=== PATIENT | female | born 1935 | race Caucasian/White ===

== ENCOUNTER → 2016-06-18 | Outpatient (CLI) | payer MEDICARE ==
[~2016-06-18] MED LIST: ACET-1757 PO; ACET325T21 PO; APIX5TAB PO; ASPI-621 PO; ATOR20TA PO; ATOR40TA78 PO; BISA10SU2 PR; CEFD300C2 PO; CEPH-368 PO; DIGO125T PO; DIGO250T PO; DOCU100C8 PO; DOXY100T PO; FURO-93 PO; FURO20TA3 PO; GUAI5LIQ3 PO; HYDR-3138 PO; HYDR25TA6 PO; LEVO100T5 PO; LEVO112T25 PO; LEVO50TA PO; LOSA100T6 PO; LOSA50TA6 PO; MAGN400T26 PO; MAGN71.5 PO; METF100010 PO; METF500T4 PO; METO-93 PO; METO-99 PO; METO50TA82 PO; OMEP-110 PO; OMEP20TA62 PO; ONDA4TAB13 PO; OXYC5TAB3 PO; POLY17PO5 PO; POTA15TA2 PO; POTA20TA14 PO; POTASSIUM PO; SITA100T PO; TRAM50TA2 PO; VALS320T2 PO; WARF2.5T PO
== END | disposition home or self-care (01) ==
LOC: RAD 09:26
PROVIDERS: ATTEND Internal Medicine
DX: Z51.89 Encounter for other specified aftercare (principal); R13.10 Dysphagia, unspecified
CPT/HCPCS: 74230

== ENCOUNTER → 2016-06-19 | Outpatient (CLI) | payer MEDICARE | END | disposition home or self-care (01) | LOC: CVU 11:53 | PROVIDERS: ATTEND Podiatrist Foot & Ankle Surgery | DX: I63.443 Cerebral infarction due to embolism of bilateral cerebellar arteries (principal) | CPT/HCPCS: 93880 ==

== ENCOUNTER 2016-12-03 20:08 | Inpatient (IN) | payer MEDICARE, OTHER ==
[~2016-12-03] VITALS: Ht 157.5 cm; Wt 59.2 kg
[~2016-12-03 20:08] MED LIST changes: -CEFD300C2 PO; +CEFD300C37 PO; +DOCU100C33 PO; -DOCU100C8 PO; -HYDR-3138 PO; +HYDR-3237 PO; -LEVO112T25 PO; +LEVO112T41 PO
[2016-12-03] MEDS ORDERED: DIPH,PERTUSS(ACELL),TET VAC/PF 0.5 ML IM-VACC ONE ×2 (20:30→21:06)
[2016-12-03] MEDS ORDERED: LIDOCAINE 1%, 20ML INFIL ONE (20:30)
[2016-12-03] MEDS ORDERED: SODIUM CHLORIDE FLUSH 10ML SYR IVF ONE (20:30)
[2016-12-03] MEDS ORDERED: BIMA2.5D EACHEYE (20:48)
[2016-12-03] MEDS ORDERED: METO-99 PO (20:48)
[2016-12-03] MEDS ORDERED: FLUO5DRO3 PO (20:48)
[2016-12-03] MEDS ORDERED: GABA300C10 PO (20:48)
[2016-12-03 20:52] LABS: HEMATOCRIT 43.9 % (34.6-47.8); HEMOGLOBIN 14.9 g/dL (11.7-16.4); WHITE BLOOD COUNT 10.4 x10^3/uL (3.4-10)
[2016-12-03] MEDS ORDERED: LIDOCAINE 1%, 20ML ONE (21:05)
[2016-12-03 21:06] LABS: ASPARTATE AMINO TRANSFERASE 18 U/L (15-37); BLOOD UREA NITROGEN 18 mg/dL (7-18)
[2016-12-03 21:07] LABS: IS PT STATUS REG ER OR PRE ER? YES
[2016-12-03] MEDS ORDERED: ONDANSETRON 2MG/ML, 2ML ONE (23:24)
[2016-12-03] MEDS ORDERED: MORPHINE SULFATE 4 MG/ML, 1ML ONE (23:24)
[2016-12-03] MEDS ORDERED: ONDANSETRON 2MG/ML, 2ML IVPush ONE (23:30)
[2016-12-03] MEDS ORDERED: MORPHINE SULFATE 4 MG/ML, 1ML IVPush ONE (23:30)
[2016-12-04] MEDS ORDERED: ONDANSETRON 2MG/ML, 2ML IVPush PRN
[2016-12-04] MEDS ORDERED: ONDANSETRON ODT 4 MG PO PRN
[2016-12-04] MEDS ORDERED: POLYETHYLENE GLYCOL 17 GM PACKET PO PRN
[2016-12-04] MEDS ORDERED: hydrALAzine 20 MG/ML, 1ML IVPush PRN
[2016-12-04] MEDS ORDERED: BISACODYL 10 MG SUPP PR PRN
[2016-12-04 00:25] VITALS: BP_SYST 160; BP_SYST 161; BP_SYST 162; BP_DIAS 67; BP_DIAS 72; BP_DIAS 84
[2016-12-04] MEDS: FML MC SCH ×3 (01:00→17:00)
[2016-12-04] MEDS: LOSARTAN 50MG TABLET PO SCH ×2 (01:18→20:23)
[2016-12-04] MEDS: ATORVASTATIN 20 MG TABLET PO SCH ×2 (01:18→20:23)
[2016-12-04] MEDS: APIXABAN 5 MG TABLET PO SCH ×3 (01:19→20:22)
[2016-12-04] MEDS: MAGNESIUM OXIDE 400 MG TABLET PO SCH ×3 (01:20→20:23)
[2016-12-04] MEDS: GABAPENTIN 100 MG CAPSULE PO SCH ×4 (01:20→20:24)
[2016-12-04] MEDS: FLUOROMETHOLONE PO SCH ×3 (01:21→20:24)
[2016-12-04] MEDS: LATANOPROST OPHTH 0.005%, 2.5ML EACHEYE SCH ×2 (01:22→20:24)
[2016-12-04] MEDS: SODIUM CHLORIDE FLUSH 10ML SYR IVF SCH ×3 (01:22→20:24)
[2016-12-04] MEDS: ACETAMINOPHEN 325 MG TABLET PO PRN (01:39)
[2016-12-04 01:52] VITALS: BP_SYST 160; BP_SYST 161; BP_SYST 162; BP_DIAS 67; BP_DIAS 72; BP_DIAS 84
[2016-12-04 02:01] LABS: PATH.CAST-FLAG NOT PRESENT; SPERM-FLAG NOT PRESENT; SRC-FLAG NOT PRESENT; XTAL-FLAG NOT PRESENT; YLC-FLAG NOT PRESENT
[2016-12-04 03:48] LABS: HEMATOCRIT 39.5 % (34.6-47.8); HEMOGLOBIN 13.4 g/dL (11.7-16.4); WHITE BLOOD COUNT 9.7 x10^3/uL (3.4-10)
[2016-12-04 03:54] LABS: ASPARTATE AMINO TRANSFERASE 16 U/L (15-37); BLOOD UREA NITROGEN 15 mg/dL (7-18)
[2016-12-04 03:59] LABS: IS PT STATUS REG ER OR PRE ER? NO
[2016-12-04] MEDS: CEFTRIAXONE PMX 1GM/50ML 50 ML IV SCH (04:21)
[2016-12-04] MEDS: LEVOTHYROXINE 50 MCG TABLET PO SCH (06:28)
[2016-12-04 07:00] VITALS: BP 137/57
[2016-12-04] MEDS: SENNA/DOCUSATE TABLET PO SCH (09:29)
[2016-12-04] MEDS: POTASSIUM CHLORIDE 10 MEQ TABLET.ER PO SCH (09:29)
[2016-12-04] MEDS: FUROSEMIDE 20 MG TABLET PO SCH ×2 (09:29→17:00)
[2016-12-04 14:20] VITALS: BP 173/56
[2016-12-04 21:43] VITALS: BP 145/63
[2016-12-05] MEDS: FML MC SCH ×3 (01:00→16:13)
[2016-12-05 01:59] VITALS: BP 152/64
[2016-12-05] MEDS: CEFTRIAXONE PMX 1GM/50ML 50 ML IV SCH (05:01)
[2016-12-05] MEDS: LEVOTHYROXINE 50 MCG TABLET PO SCH (05:06)
[2016-12-05] MEDS: POTASSIUM CHLORIDE 10 MEQ TABLET.ER PO SCH (07:59)
[2016-12-05] MEDS: SODIUM CHLORIDE FLUSH 10ML SYR IVF SCH ×2 (07:59→20:23)
[2016-12-05] MEDS: SENNA/DOCUSATE TABLET PO SCH (07:59)
[2016-12-05] MEDS: GABAPENTIN 100 MG CAPSULE PO SCH ×3 (07:59→21:05)
[2016-12-05] MEDS: MAGNESIUM OXIDE 400 MG TABLET PO SCH ×2 (07:59→20:21)
[2016-12-05] MEDS: FUROSEMIDE 20 MG TABLET PO SCH ×2 (07:59→16:13)
[2016-12-05] MEDS: APIXABAN 5 MG TABLET PO SCH ×2 (07:59→20:21)
[2016-12-05] MEDS: FLUOROMETHOLONE PO SCH ×2 (08:00→20:23)
[2016-12-05 08:12] VITALS: BP 172/72
[2016-12-05] MEDS: VALSARTAN 160 MG TABLET PO SCH ×2 (11:53→20:21)
[2016-12-05 13:32] VITALS: BP 162/68
[2016-12-05] MEDS: ACETAMINOPHEN 325 MG TABLET PO PRN ×2 (16:16→20:30)
[2016-12-05 20:11] VITALS: BP 124/77
[2016-12-05] MEDS: ATORVASTATIN 20 MG TABLET PO SCH (20:21)
[2016-12-05] MEDS: LATANOPROST OPHTH 0.005%, 2.5ML EACHEYE SCH (20:23)
[2016-12-06] MEDS: FML MC SCH ×4 (01:13→23:59)
[2016-12-06 02:19] VITALS: BP 132/85
[2016-12-06] MEDS: ACETAMINOPHEN 325 MG TABLET PO PRN ×4 (05:21→21:12)
[2016-12-06] MEDS: LEVOTHYROXINE 50 MCG TABLET PO SCH (05:21)
[2016-12-06] MEDS: CEFTRIAXONE PMX 1GM/50ML 50 ML IV SCH (05:21)
[2016-12-06 06:09] LABS: HEMATOCRIT 41.1 % (34.6-47.8); HEMOGLOBIN 14.1 g/dL (11.7-16.4); WHITE BLOOD COUNT 6.3 x10^3/uL (3.4-10)
[2016-12-06 06:12] LABS: BLOOD UREA NITROGEN 16 mg/dL (7-18)
[2016-12-06 08:16] VITALS: BP 135/65
[2016-12-06] MEDS: SENNA/DOCUSATE TABLET PO SCH (08:50)
[2016-12-06] MEDS: GABAPENTIN 100 MG CAPSULE PO SCH ×3 (09:00→21:15)
[2016-12-06] MEDS: SODIUM CHLORIDE FLUSH 10ML SYR IVF SCH ×2 (09:00→21:15)
[2016-12-06] MEDS: FLUOROMETHOLONE PO SCH ×2 (09:00→21:14)
[2016-12-06] MEDS: VALSARTAN 160 MG TABLET PO SCH ×2 (09:47→21:15)
[2016-12-06] MEDS: FUROSEMIDE 20 MG TABLET PO SCH ×2 (09:47→17:55)
[2016-12-06] MEDS: MAGNESIUM OXIDE 400 MG TABLET PO SCH ×2 (09:48→21:15)
[2016-12-06] MEDS: POTASSIUM CHLORIDE 10 MEQ TABLET.ER PO SCH (09:48)
[2016-12-06] MEDS: APIXABAN 5 MG TABLET PO SCH ×2 (09:48→21:15)
[2016-12-06] MEDS: MEROPENEM 500 MG in SODIUM CHLORIDE 0.9% 100 ML IV SCH ×2 (13:17→17:55)
[2016-12-06 14:45] VITALS: BP 127/64
[2016-12-06 19:45] VITALS: BP 140/61
[2016-12-06] MEDS: LATANOPROST OPHTH 0.005%, 2.5ML EACHEYE SCH (21:14)
[2016-12-06] MEDS: ATORVASTATIN 20 MG TABLET PO SCH (21:15)
[2016-12-07] MEDS: MEROPENEM 500 MG in SODIUM CHLORIDE 0.9% 100 ML IV SCH ×4 (00:11→18:35)
[2016-12-07 01:23] VITALS: BP 151/76
[2016-12-07] MEDS: LEVOTHYROXINE 50 MCG TABLET PO SCH (05:37)
[2016-12-07] MEDS: ACETAMINOPHEN 325 MG TABLET PO PRN ×4 (05:37→21:11)
[2016-12-07 06:07] LABS: HEMATOCRIT 40.5 % (34.6-47.8); HEMOGLOBIN 13.7 g/dL (11.7-16.4)
[2016-12-07 06:18] LABS: BLOOD UREA NITROGEN 15 mg/dL (7-18)
[2016-12-07 08:12] VITALS: BP 154/64
[2016-12-07] MEDS: GABAPENTIN 100 MG CAPSULE PO SCH ×2 (08:55→21:08)
[2016-12-07] MEDS: FML MC SCH ×2 (08:56→17:00)
[2016-12-07] MEDS: SODIUM CHLORIDE FLUSH 10ML SYR IVF SCH ×2 (08:57→21:08)
[2016-12-07] MEDS: SENNA/DOCUSATE TABLET PO SCH (08:57)
[2016-12-07] MEDS: FLUOROMETHOLONE PO SCH ×2 (09:00→21:09)
[2016-12-07] MEDS: VALSARTAN 160 MG TABLET PO SCH ×2 (09:13→21:08)
[2016-12-07] MEDS: POTASSIUM CHLORIDE 10 MEQ TABLET.ER PO SCH (09:13)
[2016-12-07] MEDS: FUROSEMIDE 20 MG TABLET PO SCH ×2 (09:13→17:25)
[2016-12-07] MEDS: APIXABAN 5 MG TABLET PO SCH ×2 (09:13→21:08)
[2016-12-07] MEDS: MAGNESIUM OXIDE 400 MG TABLET PO SCH ×2 (09:13→21:08)
[2016-12-07 13:41] VITALS: BP 136/51
[2016-12-07 18:24] VITALS: BP 180/75
[2016-12-07 21:07] VITALS: BP 166/71
[2016-12-07] MEDS: ATORVASTATIN 20 MG TABLET PO SCH (21:08)
[2016-12-07] MEDS: LATANOPROST OPHTH 0.005%, 2.5ML EACHEYE SCH (21:09)
[2016-12-08] MEDS: MEROPENEM 500 MG in SODIUM CHLORIDE 0.9% 100 ML IV SCH ×4 (01:25→18:19)
[2016-12-08] MEDS: FML MC SCH (01:26)
[2016-12-08 02:52] VITALS: BP 146/61
[2016-12-08] MEDS: ACETAMINOPHEN 325 MG TABLET PO PRN ×2 (06:23→10:14)
[2016-12-08] MEDS: LEVOTHYROXINE 50 MCG TABLET PO SCH (06:23)
[2016-12-08 08:33] VITALS: BP 160/73
[2016-12-08] MEDS: SENNA/DOCUSATE TABLET PO SCH (09:00)
[2016-12-08] MEDS: FLUOROMETHOLONE PO SCH ×2 (09:00→20:53)
[2016-12-08] MEDS: GABAPENTIN 100 MG CAPSULE PO SCH ×3 (09:00→20:52)
[2016-12-08] MEDS: SODIUM CHLORIDE FLUSH 10ML SYR IVF SCH ×2 (09:00→20:52)
[2016-12-08] MEDS: FUROSEMIDE 20 MG TABLET PO SCH ×2 (09:20→18:19)
[2016-12-08] MEDS: MAGNESIUM OXIDE 400 MG TABLET PO SCH ×2 (09:21→20:52)
[2016-12-08] MEDS: APIXABAN 5 MG TABLET PO SCH ×2 (09:21→20:52)
[2016-12-08] MEDS: POTASSIUM CHLORIDE 10 MEQ TABLET.ER PO SCH (09:21)
[2016-12-08] MEDS: VALSARTAN 160 MG TABLET PO SCH ×2 (09:21→20:52)
[2016-12-08 13:55] VITALS: BP 151/76
[2016-12-08] MEDS ORDERED: HYDROcodone/APAP 5/325 TABLET PO PRN (14:30)
[2016-12-08] MEDS ORDERED: IBUPROFEN 200 MG TABLET PO PRN ×2 (15:00→19:30)
[2016-12-08] MEDS: OXYcodone/APAP 5/325MG TABLET PO PRN (17:17)
[2016-12-08] MEDS ORDERED: ACETAMINOPHEN 325 MG TABLET PO PRN (19:30)
[2016-12-08] MEDS ORDERED: ONDANSETRON ODT 4 MG PO PRN (19:30)
[2016-12-08] MEDS ORDERED: hydrALAzine 20 MG/ML, 1ML IVPush PRN (19:30)
[2016-12-08] MEDS ORDERED: BISACODYL 10 MG SUPP PR PRN (19:30)
[2016-12-08] MEDS ORDERED: ONDANSETRON 2MG/ML, 2ML IVPush PRN (19:30)
[2016-12-08 20:50] VITALS: BP 174/79
[2016-12-08] MEDS: ATORVASTATIN 20 MG TABLET PO SCH (20:52)
[2016-12-08] MEDS: LATANOPROST OPHTH 0.005%, 2.5ML EACHEYE SCH (20:53)
[2016-12-09 00:57] VITALS: BP 147/79
[2016-12-09] MEDS: MEROPENEM 500 MG in SODIUM CHLORIDE 0.9% 100 ML IV SCH ×4 (01:01→23:20)
[2016-12-09 05:28] LABS: HEMATOCRIT 39.2 % (34.6-47.8); HEMOGLOBIN 13.5 g/dL (11.7-16.4); WHITE BLOOD COUNT 6.6 x10^3/uL (3.4-10)
[2016-12-09 05:38] LABS: BLOOD UREA NITROGEN 13 mg/dL (7-18)
[2016-12-09] MEDS: LEVOTHYROXINE 50 MCG TABLET PO SCH (06:28)
[2016-12-09] MEDS: OXYcodone/APAP 5/325MG TABLET PO PRN ×4 (06:34→23:21)
[2016-12-09 07:45] VITALS: BP 139/67
[2016-12-09] MEDS: FUROSEMIDE 20 MG TABLET PO SCH ×2 (08:20→16:19)
[2016-12-09] MEDS: MAGNESIUM OXIDE 400 MG TABLET PO SCH ×2 (08:21→21:17)
[2016-12-09] MEDS: POTASSIUM CHLORIDE 10 MEQ TABLET.ER PO SCH (08:21)
[2016-12-09] MEDS: VALSARTAN 160 MG TABLET PO SCH ×2 (08:21→21:17)
[2016-12-09] MEDS: GABAPENTIN 100 MG CAPSULE PO SCH ×3 (08:22→21:17)
[2016-12-09] MEDS: SENNA/DOCUSATE TABLET PO SCH (08:25)
[2016-12-09] MEDS: SODIUM CHLORIDE FLUSH 10ML SYR IVF SCH ×2 (08:30→21:00)
[2016-12-09 08:58] VITALS: BP 164/72
[2016-12-09] MEDS: FLUOROMETHOLONE PO SCH ×2 (09:00→21:00)
[2016-12-09 15:50] VITALS: BP 146/74
[2016-12-09] MEDS: SODIUM CHLORIDE 0.9% 1,000 ML IV SCH ×2 (19:31→20:04)
[2016-12-09 20:30] VITALS: BP 149/72
[2016-12-09] MEDS: LATANOPROST OPHTH 0.005%, 2.5ML EACHEYE SCH (21:00)
[2016-12-09] MEDS: ATORVASTATIN 20 MG TABLET PO SCH (21:17)
[2016-12-10 03:00] VITALS: BP 137/76
[2016-12-10] MEDS: SODIUM CHLORIDE 0.9% 1,000 ML IV SCH ×3 (03:00→20:04)
[2016-12-10] MEDS: LEVOTHYROXINE 50 MCG TABLET PO SCH (05:32)
[2016-12-10] MEDS: MEROPENEM 500 MG in SODIUM CHLORIDE 0.9% 100 ML IV SCH ×3 (05:32→20:10)
[2016-12-10 05:35] LABS: HEMATOCRIT 39.1 % (34.6-47.8); HEMOGLOBIN 13.3 g/dL (11.7-16.4)
[2016-12-10 05:40] LABS: BLOOD UREA NITROGEN 14 mg/dL (7-18)
[2016-12-10] MEDS ORDERED: CEFAZOLIN PMX 1GM/50ML 50 ML IVPB ONE (07:00)
[2016-12-10] MEDS: FUROSEMIDE 20 MG TABLET PO SCH ×2 (08:00→16:38)
[2016-12-10] MEDS: POTASSIUM CHLORIDE 10 MEQ TABLET.ER PO SCH (09:00)
[2016-12-10] MEDS: SENNA/DOCUSATE TABLET PO SCH (09:00)
[2016-12-10] MEDS: VALSARTAN 160 MG TABLET PO SCH ×2 (09:00→20:10)
[2016-12-10] MEDS: FLUOROMETHOLONE PO SCH ×2 (09:00→20:11)
[2016-12-10] MEDS: MAGNESIUM OXIDE 400 MG TABLET PO SCH ×2 (09:00→20:10)
[2016-12-10] MEDS: GABAPENTIN 100 MG CAPSULE PO SCH ×3 (09:00→20:10)
[2016-12-10] MEDS: SODIUM CHLORIDE FLUSH 10ML SYR IVF SCH ×3 (09:00→20:11)
[2016-12-10 09:41] VITALS: BP 174/78
[2016-12-10] MEDS ORDERED: FENTANYL PF 100 MCG/2ML ONE (11:04)
[2016-12-10] MEDS ORDERED: CEFAZOLIN PMX 1GM/50ML 50 ML ONE (11:04)
[2016-12-10] MEDS ORDERED: MIDAZOLAM 1 MG/ML, 5ML ONE (11:04)
[2016-12-10] MEDS ORDERED: CEFAZOLIN 1,000 MG ONE (11:05)
[2016-12-10] MEDS ORDERED: LIDOCAINE 2%, 20ML ONE (11:05)
[2016-12-10] MEDS ORDERED: ACETAMINOPHEN 325 MG TABLET PO PRN (13:00)
[2016-12-10] MEDS ORDERED: ZOLPIDEM 5MG TABLET PO PRN (13:00)
[2016-12-10] MEDS: OXYcodone/APAP 5/325MG TABLET PO PRN ×2 (13:55→20:10)
[2016-12-10 13:56] VITALS: BP 152/77
[2016-12-10] MEDS: CEFAZOLIN PMX 1GM/50ML 50 ML IVPB SCH ×2 (16:36→23:44)
[2016-12-10] MEDS: LATANOPROST OPHTH 0.005%, 2.5ML EACHEYE SCH (20:10)
[2016-12-10] MEDS: ATORVASTATIN 20 MG TABLET PO SCH (20:10)
[2016-12-10 20:34] VITALS: BP 150/70
[2016-12-11 02:20] VITALS: BP 121/75
[2016-12-11] MEDS: MEROPENEM 500 MG in SODIUM CHLORIDE 0.9% 100 ML IV SCH (02:20)
[2016-12-11] MEDS: SODIUM CHLORIDE 0.9% 1,000 ML IV SCH (03:47)
[2016-12-11] MEDS: LEVOTHYROXINE 50 MCG TABLET PO SCH (05:52)
[2016-12-11] MEDS: OXYcodone/APAP 5/325MG TABLET PO PRN ×2 (05:55→15:44)
[2016-12-11 06:02] LABS: HEMOGLOBIN 12.9 g/dL (11.7-16.4); WHITE BLOOD COUNT 7.1 x10^3/uL (3.4-10)
[2016-12-11 06:23] LABS: BLOOD UREA NITROGEN 11 mg/dL (7-18)
[2016-12-11] MEDS: SENNA/DOCUSATE TABLET PO SCH (08:07)
[2016-12-11] MEDS: VALSARTAN 160 MG TABLET PO SCH ×2 (08:07→20:44)
[2016-12-11] MEDS: GABAPENTIN 100 MG CAPSULE PO SCH ×3 (08:08→20:44)
[2016-12-11] MEDS: FUROSEMIDE 20 MG TABLET PO SCH ×2 (08:08→17:13)
[2016-12-11] MEDS: SODIUM CHLORIDE FLUSH 10ML SYR IVF SCH ×4 (08:08→20:42)
[2016-12-11] MEDS: MAGNESIUM OXIDE 400 MG TABLET PO SCH ×2 (08:08→20:44)
[2016-12-11] MEDS: POTASSIUM CHLORIDE 10 MEQ TABLET.ER PO SCH (08:08)
[2016-12-11] MEDS: FLUOROMETHOLONE PO SCH ×2 (08:11→20:43)
[2016-12-11] MEDS ORDERED: DIGOXIN 0.25 MG/ML, 2ML IVPush ONE (09:00)
[2016-12-11] MEDS ORDERED: METOPROLOL TARTRATE 100 MG TABLET PO SCH (09:00)
[2016-12-11] MEDS: DIGOXIN 0.125 MG TABLET PO SCH (09:28)
[2016-12-11] MEDS: METOPROLOL TARTRATE 25 MG TABLET PO SCH ×2 (09:28→20:44)
[2016-12-11 09:36] VITALS: BP 133/65
[2016-12-11 15:00] VITALS: BP 150/74
[2016-12-11] MEDS: APIXABAN 5 MG TABLET PO SCH (17:13)
[2016-12-11 20:41] VITALS: BP 144/65
[2016-12-11] MEDS: LATANOPROST OPHTH 0.005%, 2.5ML EACHEYE SCH (20:43)
[2016-12-11] MEDS: ATORVASTATIN 20 MG TABLET PO SCH (20:44)
[2016-12-12 01:03] VITALS: BP 153/80
[2016-12-12] MEDS: OXYcodone/APAP 5/325MG TABLET PO PRN (01:45)
[2016-12-12] MEDS: LEVOTHYROXINE 50 MCG TABLET PO SCH (05:27)
[2016-12-12] MEDS: APIXABAN 5 MG TABLET PO SCH (05:27)
[2016-12-12 06:03] LABS: HEMATOCRIT 40.2 % (34.6-47.8); HEMOGLOBIN 13.8 g/dL (11.7-16.4); WHITE BLOOD COUNT 6.6 x10^3/uL (3.4-10)
[2016-12-12 06:15] LABS: BLOOD UREA NITROGEN 16 mg/dL (7-18)
[2016-12-12] MEDS ORDERED: METO25TA35 PO (08:52)
[2016-12-12] MEDS ORDERED: VALS160T3 PO (08:52)
[2016-12-12 08:56] VITALS: BP 164/77
[2016-12-12] MEDS: SENNA/DOCUSATE TABLET PO SCH (09:00)
[2016-12-12] MEDS: FLUOROMETHOLONE PO SCH (09:00)
[2016-12-12] MEDS: SODIUM CHLORIDE FLUSH 10ML SYR IVF SCH ×2 (09:00→09:56)
[2016-12-12] MEDS: METOPROLOL TARTRATE 25 MG TABLET PO SCH (09:55)
[2016-12-12] MEDS: FUROSEMIDE 20 MG TABLET PO SCH (09:55)
[2016-12-12] MEDS: GABAPENTIN 100 MG CAPSULE PO SCH (09:55)
[2016-12-12] MEDS: DIGOXIN 0.125 MG TABLET PO SCH (09:55)
[2016-12-12] MEDS: MAGNESIUM OXIDE 400 MG TABLET PO SCH (09:55)
[2016-12-12] MEDS: VALSARTAN 160 MG TABLET PO SCH (09:56)
[2016-12-12] MEDS ORDERED: FURO20TA3 PO (11:31)
== END 2016-12-12 14:00 | disposition home or self-care (01) | DRG 308 ==
LOC: ED 21:30 → EDIP 21:52 → 5SO 12-04 00:17
PROVIDERS: ADMIT Internal Medicine; ATTEND Internal Medicine
PROC: 0HQ1XZZ Repair Face Skin, External Approach (ICD-10-PCS; principal; 2016-12-03)
PROC: 4B02XSZ Measurement of Cardiac Pacemaker, External Approach (ICD-10-PCS; 2016-12-11)
DX: I49.5 Sick sinus syndrome (principal); E43 Unspecified severe protein-calorie malnutrition; D68.69 Other thrombophilia; I42.9 Cardiomyopathy, unspecified; I27.2 Other secondary pulmonary hypertension; I50.22 Chronic systolic (congestive) heart failure; I11.0 Hypertensive heart disease with heart failure; N39.0 Urinary tract infection, site not specified; I48.92 Unspecified atrial flutter; W19.XXXA Unspecified fall, initial encounter; E11.9 Type 2 diabetes mellitus without complications; E03.9 Hypothyroidism, unspecified; B96.1 Klebsiella pneumoniae [K. pneumoniae] as the cause of diseases classified elsewhere; B96.89 Other specified bacterial agents as the cause of diseases classified elsewhere; Z96.652 Presence of left artificial knee joint; E78.5 Hyperlipidemia, unspecified; E83.119 Hemochromatosis, unspecified; Z66 Do not resuscitate; G47.33 Obstructive sleep apnea (adult) (pediatric); I08.1 Rheumatic disorders of both mitral and tricuspid valves; I48.2 Chronic atrial fibrillation; S01.81XA Laceration without foreign body of other part of head, initial encounter; Y92.002 Bathroom of unspecified non-institutional (private) residence as the place of occurrence of the external cause; Z79.01 Long term (current) use of anticoagulants; Z79.84 Long term (current) use of oral hypoglycemic drugs; Z79.899 Other long term (current) drug therapy; Z83.3 Family history of diabetes mellitus; Z86.73 Personal history of transient ischemic attack (TIA), and cerebral infarction without residual deficits; Z87.891 Personal history of nicotine dependence; Z95.0 Presence of cardiac pacemaker; Z90.49 Acquired absence of other specified parts of digestive tract; Z98.49 Cataract extraction status, unspecified eye; Z87.01 Personal history of pneumonia (recurrent); Z68.23 Body mass index [BMI] 23.0-23.9, adult; Z90.710 Acquired absence of both cervix and uterus
CPT/HCPCS: 12051; 33208; 36415; 70450; 71010; 72125; 80048; 80053; 80162; 81001; 82040; 83735; 84484; 85025; 85610; 87077; 87086; 87186; 90471; 90715; 93005; 93306; 93880; 93930; 96374; 96375; 99156; 99157; C1779; C1785; C1892; J0690; J0696; J2185; J2250; J2405; J3010; J3490; J0360; J1160; J7030

== ENCOUNTER 2017-03-20 15:55 | Inpatient (IN) | payer MEDICARE, OTHER ==
[~2017-03-20] VITALS: Ht 157.5 cm; Wt 46.7 kg
[~2017-03-20 15:55] MED LIST changes: +BIMA2.5D EACHEYE; +FLUO5DRO3 PO; +GABA300C10 PO; +METO25TA35 PO; +VALS160T3 PO
[2017-03-20] MEDS ORDERED: SODIUM CHLORIDE FLUSH 10ML SYR IVF ONE (16:30)
[2017-03-20 17:01] LABS: BASOPHILS # (AUTO) 0.05 x10^3/uL (0-0.1); BASOPHILS % (AUTO) 0 % (0-1); EOSINOPHILS # (AUTO) 0.06 x10^3/uL (0-0.4); EOSINOPHILS % (AUTO) 1 % (1-7); LYMPHOCYTES # (AUTO) 1.96 x10^3/uL (1-3.4); LYMPHOCYTES % (AUTO) 15 % (22-44); MD NO; MEAN CORPUSCULAR HEMOGLOBIN 32.3 pg (27.0-34.8); MEAN CORPUSCULAR HGB CONC 34.4 g/dL (32.4-35.8); MEAN CORPUSCULAR VOLUME 93.9 fL (80-100); MEAN PLATELET VOLUME 9.9 fL (7.4-10.4); MONOCYTES # (AUTO) 0.73 x10^3/uL (0.2-0.8); MONOCYTES % (AUTO) 6 % (2-9); NEUTROPHILS # (AUTO) 10.11 x10^3/uL (1.8-6.8); NEUTROPHILS % (AUTO) 78 % (42-75); PLATELET COUNT 163 x10^3/uL (130-400); RED BLOOD COUNT 5.08 x10^6/uL (3.82-5.3); RED CELL DISTRIBUTION WIDTH 12.7 % (9.6-15.2)
[2017-03-20 17:09] LABS: ALANINE AMINOTRANSFERASE 34 U/L (12-78); ALBUMIN 3.3 g/dL (3.4-5.0); ANION GAP 7 mmol/L (5-15); CALCIUM 8.9 mg/dL (8.5-10.1); CHLORIDE 104 mmol/L (98-107); CREATININE 0.81 mg/dL (0.55-1.02)
[2017-03-20 17:13] LABS: ALKALINE PHOSPHATASE 136 U/L (45-117); BILIRUBIN,TOTAL 1.1 mg/dL (0.2-1.0); TOTAL PROTEIN 7.5 g/dL (6.4-8.2); TROPONIN I < 0.015 ng/mL (0.000-0.045)
[2017-03-20 17:15] LABS: INTERNATIONAL NORMALIZED RATIO 1.13 (0.93-1.1); PROTHROMBIN TIME 11.6 Seconds (9.6-11.5)
[2017-03-20 18:41] LABS: MICROSCOPIC NOT IND
[2017-03-20 18:47] LABS: CULTURE INDICATED? NO
[2017-03-20] MEDS ORDERED: SODIUM CHLORIDE 0.9% 1,000 ML IV SCH (19:35)
[2017-03-20] MEDS ORDERED: MAGNESIUM HYDROXIDE 8%, 30ML UDC PO PRN (20:00)
[2017-03-20] MEDS ORDERED: ONDANSETRON ODT 4 MG PO PRN (20:00)
[2017-03-20] MEDS ORDERED: ACETAMINOPHEN 325 MG TABLET PO PRN (20:00)
[2017-03-20] MEDS ORDERED: HEPARIN 5,000 UNITS/ML, 1ML SQ SCH (20:00)
[2017-03-20] MEDS ORDERED: VALSARTAN 160 MG TABLET PO SCH (21:00)
[2017-03-20] MEDS ORDERED: FLUOROMETHOLONE PO SCH (21:00)
[2017-03-20] MEDS ORDERED: LATANOPROST OPHTH 0.005%, 2.5ML EACHEYE SCH (21:00)
[2017-03-20] MEDS ORDERED: ATORVASTATIN 20 MG TABLET PO SCH ×2 (21:00)
[2017-03-20 22:00] VITALS: BP 176/68
[2017-03-20] MEDS: APIXABAN 5 MG TABLET PO SCH (23:24)
[2017-03-20] MEDS: MAGNESIUM OXIDE 400 MG TABLET PO SCH (23:25)
[2017-03-20] MEDS: METOPROLOL TARTRATE 25 MG TABLET PO SCH (23:28)
[2017-03-21 04:28] VITALS: BP 154/78
[2017-03-21 06:17] LABS: BASOPHILS # (AUTO) 0.06 x10^3/uL (0-0.1); BASOPHILS % (AUTO) 1 % (0-1); EOSINOPHILS # (AUTO) 0.05 x10^3/uL (0-0.4); EOSINOPHILS % (AUTO) 1 % (1-7); LYMPHOCYTES # (AUTO) 1.59 x10^3/uL (1-3.4); LYMPHOCYTES % (AUTO) 17 % (22-44); MD NO; MEAN CORPUSCULAR HGB CONC 34.2 g/dL (32.4-35.8); MEAN CORPUSCULAR VOLUME 93.7 fL (80-100); MEAN PLATELET VOLUME 9.6 fL (7.4-10.4); MONOCYTES # (AUTO) 0.52 x10^3/uL (0.2-0.8); MONOCYTES % (AUTO) 6 % (2-9); NEUTROPHILS # (AUTO) 7.21 x10^3/uL (1.8-6.8); NEUTROPHILS % (AUTO) 76 % (42-75); PLATELET COUNT 127 x10^3/uL (130-400); RED BLOOD COUNT 4.49 x10^6/uL (3.82-5.3); RED CELL DISTRIBUTION WIDTH 12.9 % (9.6-15.2)
[2017-03-21 06:28] LABS: CHLORIDE 108 mmol/L (98-107)
[2017-03-21] MEDS: LEVOTHYROXINE 50 MCG TABLET PO SCH (06:35)
[2017-03-21 06:50] LABS: ALANINE AMINOTRANSFERASE 24 U/L (12-78); ALBUMIN 2.9 g/dL (3.4-5.0); ALKALINE PHOSPHATASE 99 U/L (45-117); ANION GAP 9 mmol/L (5-15); BILIRUBIN,TOTAL 1.5 mg/dL (0.2-1.0); CALCIUM 8.2 mg/dL (8.5-10.1); CHOL/HDL RATIO 2.5; CHOLESTEROL, TOTAL 89 mg/dL (140-239); HDL CHOL % 40 % (28-40); HDL CHOLESTEROL (DIRECT) 36 mg/dL (40-60); LDL CHOLESTEROL,CALCULATED 36 mg/dL (54-169); TOTAL PROTEIN 6.2 g/dL (6.4-8.2); TRIGLYCERIDES 83 mg/dL (50-200); VLDL CHOLESTEROL 17 mg/dL (0-25)
[2017-03-21 08:08] VITALS: BP 136/60
[2017-03-21] MEDS: APIXABAN 5 MG TABLET PO SCH ×2 (08:10→21:50)
[2017-03-21] MEDS: FUROSEMIDE 20 MG TABLET PO SCH (08:10)
[2017-03-21] MEDS: MAGNESIUM OXIDE 400 MG TABLET PO SCH ×2 (08:10→21:49)
[2017-03-21] MEDS: POTASSIUM CHLORIDE 10 MEQ TABLET.ER PO SCH (08:10)
[2017-03-21] MEDS: DIGOXIN 0.125 MG TABLET PO SCH (08:10)
[2017-03-21] MEDS: VALSARTAN 80 MG TABLET PO SCH ×2 (08:10→21:51)
[2017-03-21] MEDS: METOPROLOL TARTRATE 25 MG TABLET PO SCH ×2 (08:10→21:51)
[2017-03-21] MEDS: FLUOROMETHOLONE PO SCH ×2 (08:12→21:00)
[2017-03-21] MEDS ORDERED: METO-99 PO (11:50)
[2017-03-21] MEDS ORDERED: LATA2.5D3 RIGHTEYE (11:50)
[2017-03-21 17:39] VITALS: BP 170/80
[2017-03-21] MEDS ORDERED: hydrALAzine 20 MG/ML, 1ML ONE (17:48)
[2017-03-21] MEDS ORDERED: hydrALAzine 20 MG/ML, 1ML IV PRN (18:00)
[2017-03-21 19:57] VITALS: BP 150/65
[2017-03-21] MEDS: ATORVASTATIN 80 MG TABLET PO SCH (21:49)
[2017-03-21] MEDS: LATANOPROST OPHTH 0.005%, 2.5ML RIGHTEYE SCH (22:05)
[2017-03-22 01:26] VITALS: BP 130/66
[2017-03-22 05:30] LABS: ANION GAP 6 mmol/L (5-15); CALCIUM 8.7 mg/dL (8.5-10.1); CHLORIDE 111 mmol/L (98-107); CREATININE 0.57 mg/dL (0.55-1.02)
[2017-03-22 05:38] LABS: BASOPHILS # (AUTO) 0.02 x10^3/uL (0-0.1); BASOPHILS % (AUTO) 0 % (0-1); EOSINOPHILS # (AUTO) 0.11 x10^3/uL (0-0.4); EOSINOPHILS % (AUTO) 2 % (1-7); LYMPHOCYTES # (AUTO) 1.57 x10^3/uL (1-3.4); LYMPHOCYTES % (AUTO) 23 % (22-44); MD NO; MEAN CORPUSCULAR HGB CONC 33.9 g/dL (32.4-35.8); MEAN CORPUSCULAR VOLUME 94.6 fL (80-100); MEAN PLATELET VOLUME 9.7 fL (7.4-10.4); MONOCYTES % (AUTO) 6 % (2-9); NEUTROPHILS # (AUTO) 4.84 x10^3/uL (1.8-6.8); NEUTROPHILS % (AUTO) 70 % (42-75); PLATELET COUNT 126 x10^3/uL (130-400); RED BLOOD COUNT 4.33 x10^6/uL (3.82-5.3); RED CELL DISTRIBUTION WIDTH 13.4 % (9.6-15.2)
[2017-03-22] MEDS: LEVOTHYROXINE 50 MCG TABLET PO SCH (06:12)
[2017-03-22 06:43] VITALS: BP 146/72
[2017-03-22] MEDS: DIGOXIN 0.125 MG TABLET PO SCH (08:24)
[2017-03-22] MEDS: MAGNESIUM OXIDE 400 MG TABLET PO SCH ×2 (08:24→20:36)
[2017-03-22] MEDS: FUROSEMIDE 20 MG TABLET PO SCH (08:24)
[2017-03-22] MEDS: FLUOROMETHOLONE PO SCH ×2 (08:24→20:36)
[2017-03-22] MEDS: VALSARTAN 80 MG TABLET PO SCH ×2 (08:24→20:35)
[2017-03-22] MEDS: METOPROLOL TARTRATE 25 MG TABLET PO SCH ×2 (08:24→20:36)
[2017-03-22] MEDS: APIXABAN 5 MG TABLET PO SCH ×2 (08:24→20:35)
[2017-03-22] MEDS: POTASSIUM CHLORIDE 10 MEQ TABLET.ER PO SCH (08:24)
[2017-03-22 13:25] VITALS: BP 148/70
[2017-03-22 18:55] VITALS: BP 161/73
[2017-03-22] MEDS: LATANOPROST OPHTH 0.005%, 2.5ML RIGHTEYE SCH (20:34)
[2017-03-22] MEDS: ATORVASTATIN 80 MG TABLET PO SCH (20:35)
[2017-03-23 04:46] VITALS: BP 150/69
[2017-03-23 05:04] LABS: BASOPHILS # (AUTO) 0.02 x10^3/uL (0-0.1); BASOPHILS % (AUTO) 0 % (0-1); EOSINOPHILS # (AUTO) 0.12 x10^3/uL (0-0.4); EOSINOPHILS % (AUTO) 2 % (1-7); LYMPHOCYTES % (AUTO) 25 % (22-44); MD NO; MEAN CORPUSCULAR HEMOGLOBIN 31.7 pg (27.0-34.8); MEAN CORPUSCULAR HGB CONC 33.9 g/dL (32.4-35.8); MEAN CORPUSCULAR VOLUME 93.6 fL (80-100); MEAN PLATELET VOLUME 9.9 fL (7.4-10.4); MONOCYTES # (AUTO) 0.42 x10^3/uL (0.2-0.8); MONOCYTES % (AUTO) 6 % (2-9); NEUTROPHILS # (AUTO) 4.87 x10^3/uL (1.8-6.8); NEUTROPHILS % (AUTO) 67 % (42-75); PLATELET COUNT 150 x10^3/uL (130-400); RED BLOOD COUNT 4.46 x10^6/uL (3.82-5.3); RED CELL DISTRIBUTION WIDTH 12.8 % (9.6-15.2)
[2017-03-23 05:17] LABS: CHLORIDE 110 mmol/L (98-107)
[2017-03-23 05:27] LABS: ANION GAP 8 mmol/L (5-15); CALCIUM 8.8 mg/dL (8.5-10.1); CREATININE 0.63 mg/dL (0.55-1.02)
[2017-03-23] MEDS: LEVOTHYROXINE 50 MCG TABLET PO SCH (05:53)
[2017-03-23] MEDS: FLUOROMETHOLONE PO SCH (08:49)
[2017-03-23] MEDS: VALSARTAN 80 MG TABLET PO SCH (08:53)
[2017-03-23] MEDS: APIXABAN 5 MG TABLET PO SCH (08:54)
[2017-03-23] MEDS: MAGNESIUM OXIDE 400 MG TABLET PO SCH (08:54)
[2017-03-23] MEDS: DIGOXIN 0.125 MG TABLET PO SCH (08:54)
[2017-03-23] MEDS: FUROSEMIDE 20 MG TABLET PO SCH (08:54)
[2017-03-23] MEDS: METOPROLOL TARTRATE 25 MG TABLET PO SCH (08:54)
[2017-03-23] MEDS: POTASSIUM CHLORIDE 10 MEQ TABLET.ER PO SCH (08:54)
== END 2017-03-23 09:35 | disposition home or self-care (01) | DRG 640 ==
LOC: ED 17:06 → EDIP 19:36 → 4WST 22:20
PROVIDERS: ADMIT Hospitalist; ATTEND Hospitalist
PROC: 0T9B70Z Drainage of Bladder with Drainage Device, Via Natural or Artificial Opening (ICD-10-PCS; principal; 2017-03-20)
DX: E86.0 Dehydration (principal); G93.41 Metabolic encephalopathy; D68.69 Other thrombophilia; I11.0 Hypertensive heart disease with heart failure; G45.9 Transient cerebral ischemic attack, unspecified; E44.1 Mild protein-calorie malnutrition; I48.2 Chronic atrial fibrillation; I50.22 Chronic systolic (congestive) heart failure; R65.10 Systemic inflammatory response syndrome (SIRS) of non-infectious origin without acute organ dysfunction; I48.92 Unspecified atrial flutter; R47.01 Aphasia; Z68.1 Body mass index [BMI] 19.9 or less, adult; E87.1 Hypo-osmolality and hyponatremia; Z66 Do not resuscitate; D72.829 Elevated white blood cell count, unspecified; E03.9 Hypothyroidism, unspecified; E83.119 Hemochromatosis, unspecified; E11.9 Type 2 diabetes mellitus without complications; G47.33 Obstructive sleep apnea (adult) (pediatric); R47.02 Dysphasia; M19.90 Unspecified osteoarthritis, unspecified site; Z79.01 Long term (current) use of anticoagulants; Z83.3 Family history of diabetes mellitus; Z90.710 Acquired absence of both cervix and uterus; Z95.0 Presence of cardiac pacemaker; Z88.5 Allergy status to narcotic agent; Z90.49 Acquired absence of other specified parts of digestive tract
CPT/HCPCS: 36415; 70450; 70553; 71010; 80048; 80053; 80061; 80162; 81003; 84484; 85025; 85610; 87040; 93005; 93306; 93880; 99285; 92523-GN; J0360; J7030

== ENCOUNTER 2019-04-24 13:54 | Outpatient (CLI) | payer MEDICARE ==
[~2019-04-24] VITALS: Ht 157.5 cm; Wt 59.5 kg
[~2019-04-24 13:54] MED LIST changes: -ACET-1757 PO; +ACET-2065 PO; -ASPI-621 PO; +ASPI81TA45 PO; -BISA10SU2 PR; +BISA10SU4 PR; -DIGO125T PO; +DIGO125T85 PO; -DIGO250T PO; +DIGO250T3 PO; +LATA2.5D3 RIGHTEYE; +LOSA100T14 PO; -LOSA100T6 PO; +LOSA50TA14 PO; -LOSA50TA6 PO; +METF500T17 PO; -METF500T4 PO
[2019-04-24] MEDS ORDERED: IPRA0.2S35 INH (13:57)
[2019-04-24] MEDS ORDERED: ALBU8.5H8 INH (13:57)
[2019-04-24] MEDS ORDERED: METF500T27 PO (13:57)
[2019-04-24] MEDS ORDERED: VALA500T4 PO (13:57)
[2019-04-24] MEDS ORDERED: LOSA100T14 PO (13:57)
[2019-04-24] MEDS ORDERED: BENZ100C PO (13:57)
[2019-04-24] MEDS ORDERED: OMEP-110 PO (13:57)
[2019-04-24 14:00] VITALS: BP 114/62
[2019-04-24 14:23] LABS: CALCIUM 9.3 mg/dL (8.5-10.1); CREATININE 0.81 mg/dL (0.55-1.02)
[2019-04-24] MEDS ORDERED: ZOLEDRONIC ACID 5MG/100ML 100 ML IV ONE (15:30)
== END 2019-04-24 23:59 | disposition home or self-care (01) ==
LOC: INFUSION 13:54
PROVIDERS: ATTEND Family Medicine
DX: M81.0 Age-related osteoporosis without current pathological fracture (principal)
CPT/HCPCS: 36415; 36591; 82310; 82565; 96365; J3489